=== PATIENT | male | born 1940 | race Caucasian/White ===

== ENCOUNTER 2023-07-12 18:42 | Emergency (ER) | payer MEDICARE ==
[2023-07-12] MEDS ORDERED: Lidocaine 2% Jelly 10 ML Urojet MUCMEM ONE ×2 (19:53→21:42)
[2023-07-12] MEDS ORDERED: fentaNYL 100 MCG/2 ML SDV IM ONE (20:31)
[2023-07-12] MEDS ORDERED: Tamsulosin 0.4 MG Cap.ER PO STA (20:45)
[2023-07-12] MEDS: HYDROmorphone 1 MG/ML Syringe IM ONE ×2 (21:34→21:46)
[2023-07-12] MEDS ORDERED: HYDROmorphone 1 MG/ML Syringe IM ONE (22:40)
[2023-07-12 22:49] VITALS: BP 184/96; PULSE 80
== END 2023-07-12 23:15 ==
LOC: JP.ED 18:42
DX: R33.9 Retention of urine, unspecified (principal); Z88.1 Allergy status to other antibiotic agents
CPT/HCPCS: 51702; 96372; 99284; A9270; J1170; J3010